=== PATIENT | male | born 1995 | race Caucasian/White ===

== ENCOUNTER 2021-11-30 20:42 | Emergency (ER) | payer MEDICAID, SELFPAY ==
--- NOTE | ~2021-11-30 | XR_ITS ---
EXAMINATION: XR CHEST CLINICAL INFORMATION: Chest pain. COMPARISON: None TECHNIQUE: Frontal view of the chest was obtained. FINDINGS: No significant abnormality is noted involving the heart, lungs, mediastinum, bony thorax or soft tissues. XR/XR chest 1V IMPRESSION: Unremarkable examination.
[2021-11-30 20:50] VITALS: BP 122/66; PULSE 56; RESP 16; TEMP 37.2; O2SAT 98
[2021-11-30 20:51] VITALS: BP 128/64; PULSE 77; O2SAT 96
--- NOTE | 2021-11-30 20:54 | ECG_ITS ---
Test Reason : CHEST PAIN Blood Pressure : / mmHG Vent. Rate : 063 BPM Atrial Rate : 063 BPM P-R Int : 182 ms QRS Dur : 108 ms QT Int : 430 ms P-R-T Axes : 041 -27 009 degrees QTc Int : 440 ms Normal sinus rhythm with sinus arrhythmia Incomplete right bundle branch block Borderline ECG When compared with ECG of 13-MAY-2015 05:37, T wave inversion now evident in Inferior leads T wave amplitude has decreased in Anterolateral leads Referred By: Generic ED Physician Electronically Signed By:SHARIF TEE
[2021-11-30 20:57] VITALS: BMI 30.4
--- NOTE | 2021-11-30 21:02 | ED_ITS ---
HPI - Chest Pain General Chief Complaint: Chest Pain Stated Complaint: cp Time Seen by Provider: 11/30/21 21:02 Source: patient Mode of arrival: ambulatory Limitations: no limitations History of Present Illness MD complaint: chest pain (vomiting when he eats, stomach acids) Onset (ago): week(s) Timing of current episode: episodic Prior episodes: Yes Onset: after eating Pain location: substernal Pain radiation: none Severity: moderate Quality: tightness and burning Relieving factors: antacids Exacerbating factors: eating Context: other (started after he left [facility] started to have issues with his stomach) Associated symptoms: nausea and vomiting Treatment prior to arrival: none Related Data Previous Rx's Medication Instructions Recorded omeprazole 20 mg capsule,delayed 20 mg PO DAILY #20 caps 11/30/21 release ondansetron 4 mg disintegrating 4 mg PO Q8H PRN nausea and 11/30/21 tablet vomiting #20 tabs Allergies Allergy/AdvReac Type Severity Reaction Status Date / Time Penicillins [PENICILLINS] Allergy Unknown RASH Verified 11/30/21 20:59 Review of Systems Review of Systems: Constitutional : No Weight loss, No Fever, No Chills ENT/Mouth : No sore throat, No Rhinorrhea Eyes: No Eye Pain, No Swelling Cardiovascular : pos Chest Pain, no SOB, no Dyspnea on Exertion, No Orthopnea, No Edema, No Palpitations Respiratory : pos Cough, No Sputum Gastrointestinal : pos Nausea, pos Vomiting, No Diarrhea, No abdominal Pain, No Hematochezia, No Melena Genitourinary : No Dysuria, No Urinary Frequency Musculoskeletal : No joint pain, No Myalgias, No Joint Swelling Skin : No Skin Lesions, No rash Neuro : No Weakness, No Numbness, No Dizziness, No Headache Psych : No Anxiety/Panic, No Depression Heme/Lymph: No Bruising, No Lymphadenopathy Endocrine : No Polyuria, No Polydipsia All other systems reviewed and are negative [facility] Past Medical History Attestation statement: The following information was validated with the patient. Medical History Asthma Social History Social History (Updated 11/30/21 @ 21:23 by Kandy Teague DO) Patient Tobacco Use Status: Current someday Tobacco user Substance Use Type: Marijuana Advance Directives: No Advance Directives Information Provided: No Physical Exam Vital Signs: Vital Signs: Last Vital Signs Temp 99.0 F 11/30/21 20:50 Pulse 56 11/30/21 20:50 Resp 16 11/30/21 20:50 BP 122/66 11/30/21 20:50 Pulse Ox 98 11/30/21 20:50 O2 Del Method 11/30/21 20:50 BMI result Body Mass Index 30.4 Appearance: Alert. Oriented X3. No acute distress. Eyes: Pupils equal, round and reactive to light. ENT: Pharynx normal. Neck: Normal inspection. Neck supple. CVS: Normal heart rate and rhythm. Pulses normal. Respiratory: No respiratory distress. Breath sounds normal. intermittent bronchospastic cough Abdomen: Soft and nontender. neg Mejia's sign Skin: Skin warm and dry. Normal skin color. Normal skin turgor. Extremities: No lower extremity edema. No calf ttp Neuro: Oriented X 3. No motor deficit. No sensory deficit. Course Course Course Narrative: feels better stable for DC MDM - Chest Pain MDM Narrative Medical decision making narrative: 26 yo male with hx of asthma here with c/o n/v and epigastric pain when he eats heavy foods he has no abdominal pain to suggest GB issues or pancreatitis, his chest pain seems more GERD related. At this time will obtain basic labs, EKG, CXR, hydrate the patient, supportive medications. Will start on antacid and refer to PCP. He also has hx of asthma that has been acting up - INH ordered for him to take home. Dispo per results and clinical improvement. Lab Data Result diagrams: 11/30/21 21:20 11/30/21 21:20 Labs: Lab Results 11/30/21 11/30/21 11/30/21 Range/Units 21:20 21:20 21:20 WBC 11.5 H (4.8-10.8) X10*3/uL RBC 5.37 (4.60-5.80) X10*6/uL Hgb 15.4 (14.0-18.0) g/dl Hct 45.5 (42.0-52.0) % MCV 84.7 (80.0-98.0) fL MCH 28.7 (27.0-33.0) pg MCHC 33.8 (31.0-36.0) g/dl RDW 13.8 (11.0-16.0) % Plt Count 205 (160-400) X10*3/uL MPV 12.6 H (9.4-12.4) fL Immature Gran % (Auto) Cancelled Neut % (Auto) Cancelled Lymph % (Auto) Cancelled Heard % (Auto) Cancelled Eos % (Auto) Cancelled Baso % (Auto) Cancelled Lymph # (Auto) Cancelled Heard # (Auto) Cancelled Eos # (Auto) Cancelled Baso # (Auto) Cancelled Abs Immat Gran (auto) Cancelled Absolute Neuts (auto) Cancelled Absolute Nucleated RBC 0.000 (0.0-0.012) X10*3/uL Nucleated RBC % (auto) 0.0 (0.0-0.2) /100WBC Neutrophils % (Manual) 92 H (45-73) % Band Neutrophils % 0 L (3-5) % Lymphocytes % (Manual) 6 L (20-40) % Monocytes % (Manual) 2 (2-11) % Abs Neuts (Manual) 10.6 H (2.0-8.3) X10*3/uL Lymphocytes # (Manual) 0.7 L (1.2-4.9) X10*3/uL Monocytes # (Manual) 0.2 (0.1-1.2) X10*3/uL Toxic Granulation PRESENT Toxic Vacuolation PRESENT Platelet Estimate NORMAL (NORMAL) Large Platelets PRESENT Plt Morphology Comment NOTED RBC Morphology NORMAL Sodium 139 (135-145) mmol/L Potassium 3.6 (3.3-5.1) mmol/L Chloride 105 (96-108) mmol/L Carbon Dioxide 23 (22-29) mmol/L Anion Gap 15 (12-20) BUN 8 L (9-16) mg/dL Creatinine 1.12 (0.5-1.4) mg/dL Estim Creat Clear Calc 110.2 Estimated GFR > 60 Random Glucose 117 H (60-115) mg/dL Calcium 10.2 (8.4-10.2) mg/dL Total Bilirubin (0.0-1.0) mg/dL Direct Bilirubin (0.0-0.5) mg/dL AST (5-37) U/L ALT (0-40) U/L Alkaline Phosphatase (39-117) U/L Troponin I High Sens < 3.5 (<3.5-35.0) ng/L Total Protein (6.5-8.0) g/dL Albumin (3.5-5.0) g/dL Lipase (8-78) U/L 11/30/21 Range/Units 21:20 WBC (4.8-10.8) X10*3/uL RBC (4.60-5.80) X10*6/uL Hgb (14.0-18.0) g/dl Hct (42.0-52.0) % MCV (80.0-98.0) fL MCH (27.0-33.0) pg MCHC (31.0-36.0) g/dl RDW (11.0-16.0) % Plt Count (160-400) X10*3/uL MPV (9.4-12.4) fL Immature Gran % (Auto) Neut % (Auto) Lymph % (Auto) Heard % (Auto) Eos % (Auto) Baso % (Auto) Lymph # (Auto) Heard # (Auto) Eos # (Auto) Baso # (Auto) Abs Immat Gran (auto) Absolute Neuts (auto) Absolute Nucleated RBC (0.0-0.012) X10*3/uL Nucleated RBC % (auto) (0.0-0.2) /100WBC Neutrophils % (Manual) (45-73) % Band Neutrophils % (3-5) % Lymphocytes % (Manual) (20-40) % Monocytes % (Manual) (2-11) % Abs Neuts (Manual) (2.0-8.3) X10*3/uL Lymphocytes # (Manual) (1.2-4.9) X10*3/uL Monocytes # (Manual) (0.1-1.2) X10*3/uL Toxic Granulation Toxic Vacuolation Platelet Estimate (NORMAL) Large Platelets Plt Morphology Comment RBC Morphology Sodium (135-145) mmol/L Potassium (3.3-5.1) mmol/L Chloride (96-108) mmol/L Carbon Dioxide (22-29) mmol/L Anion Gap (12-20) BUN (9-16) mg/dL Creatinine (0.5-1.4) mg/dL Estim Creat Clear Calc Estimated GFR Random Glucose (60-115) mg/dL Calcium (8.4-10.2) mg/dL Total Bilirubin 0.7 (0.0-1.0) mg/dL Direct Bilirubin 0.3 (0.0-0.5) mg/dL AST 15 (5-37) U/L ALT 16 (0-40) U/L Alkaline Phosphatase 57 (39-117) U/L Troponin I High Sens (<3.5-35.0) ng/L Total Protein 7.8 (6.5-8.0) g/dL Albumin 4.8 (3.5-5.0) g/dL Lipase 20 (8-78) U/L ECG Data ECG #1: Attestation: I personally reviewed and interpreted this ECG as follows: ECG interpretation date: 11/30/21 ECG interpretation time: 21:03 Interpretation: Rate: 63 Rhythm: NSR Chester: left Normal P waves. Normal ANGELICA. Normal QRS complex. ST T wave : normal no CASH qTC: normal prior studies: no acute ischemia The study has been interpreted contemporaneously by me. Discharge Plan Discharge Clinical Impression: GERD (gastroesophageal reflux disease) Qualifiers: Esophagitis presence: with esophagitis Esophagitis bleeding: without hemorrhage Qualified Code(s): K21.00 - Gastro-esophageal reflux disease with esophagitis, without bleeding Patient Disposition: Home, Self-Care Instructions: Diet for Stomach Ulcers and Gastritis (ED), Gastroesophageal Reflux Disease (ED) Additional Instructions: return to ED for any worsening symptoms or concerns avoid spicy, greasy, fatty foods alcohol will also trigger your stomach try to avoid please get established with a primary care doctor marijuana can cause vomiting Prescriptions: New ondansetron 4 mg tablet,disintegrating 4 mg PO Q8H PRN (Reason: nausea and vomiting) Qty: 20 0RF omeprazole 20 mg capsule,delayed release(DR/EC) 20 mg PO DAILY Qty: 20 0RF
[2021-11-30 21:29] LABS: Hematocrit 45.5 % (42.0-52.0); Hemoglobin 15.4 g/dl (14.0-18.0); Mean Corpuscular HGB Conc 33.8 g/dl (31.0-36.0); Mean Corpuscular Hemoglobin 28.7 pg (27.0-33.0); Mean Corpuscular Volume 84.7 fL (80.0-98.0); Mean Platelet Volume 12.6 fL (9.4-12.4); Platelet Count 205 X10*3/uL (160-400); Red Blood Count 5.37 X10*6/uL (4.60-5.80); Red Cell Distribution Width 13.8 % (11.0-16.0)
[2021-11-30 21:36] LABS: WBC ABN SCTR FOR CBC 1
[2021-11-30] MEDS: ondansetron HCL 4 MG/2 ML VIAL IVPUSH (21:40)
[2021-11-30] MEDS: Famotidine/PF 20 MG/2 ML VIAL IVPUSH (21:40)
[2021-11-30] MEDS: 0.9 % Sodium Chloride 1,000 ML 999 ML IV (21:40)
--- NOTE | 2021-11-30 21:46 | PC.NURSE ---
Pt refused updraft due to active vomiting. Pt agitated, refusing other medications until nausea medication takes effect. Provider aware. Pt also admitted to smoking marijuana daily, last use earlier today.
[2021-11-30 21:47] LABS: Anion Gap 15 (12-20); Blood Urea Nitrogen 8 mg/dL (9-16); Calcium 10.2 mg/dL (8.4-10.2); Carbon Dioxide 23 mmol/L (22-29); Chloride 105 mmol/L (96-108); Creatinine Clr Calc Pharmacy 110.2; Estimated Glomerular Filt Rate > 60; Glucose Random 117 mg/dL (60-115); Potassium 3.6 mmol/L (3.3-5.1); Sodium 139 mmol/L (135-145)
[2021-11-30 21:49] LABS: Alanine Aminotransferase 16 U/L (0-40); Albumin Level 4.8 g/dL (3.5-5.0); Alkaline Phosphatase 57 U/L (39-117); Aspartate Amino Transferase 15 U/L (5-37); Bilirubin Direct 0.3 mg/dL (0.0-0.5); Bilirubin Total 0.7 mg/dL (0.0-1.0); Lipase 20 U/L (8-78); Total Protein 7.8 g/dL (6.5-8.0)
[2021-11-30 21:55] LABS: Troponin-I High Sensitivity < 3.5 ng/L (<3.5-35.0)
[2021-11-30 22:02] LABS: Band Neutrophils Percent 0 % (3-5); Lymphocytes Percent Manual 6 % (20-40); Monocytes Percent Manual 2 % (2-11); Neutrophils Percent Manual 92 % (45-73)
[2021-11-30 22:04] LABS: Large Platelet PRESENT; Platelet Estimate NORMAL (NORMAL); Platelet Morphology Comment NOTED; RBC Morphology NORMAL
[2021-11-30 22:05] LABS: Lymphocytes Absolute Manual 0.7 X10*3/uL (1.2-4.9); Monocytes Absolute Manual 0.2 X10*3/uL (0.1-1.2); Neutrophils Absolute Manual 10.6 X10*3/uL (2.0-8.3); Toxic Granulation PRESENT; Toxic Vacuolation PRESENT; White Blood Count 11.5 X10*3/uL (4.8-10.8)
[2021-11-30] MEDS: Metoclopramide HCl 10 MG/2 ML VIAL IVPUSH (22:51)
[2021-11-30] MEDS: diphenhydrAMINE HCL 50 MG/ML VIAL 25 MG IVPUSH (22:51)
[2021-11-30 23:48] VITALS: BP 142/89; PULSE 63; RESP 16; TEMP 37.5; O2SAT 98
== END 2021-12-01 00:02 | disposition home or self-care (01) ==
PROVIDERS: Emergency Provider Emergency Medicine
DX: K21.00 Gastro-esophageal reflux disease with esophagitis, without bleeding (principal); R07.89 Other chest pain; R11.2 Nausea with vomiting, unspecified; F17.200 Nicotine dependence, unspecified, uncomplicated; Z71.6 Tobacco abuse counseling; Z79.899 Other long term (current) drug therapy
CPT/HCPCS: 36415; 71045; 80048; 80076; 83690; 84484; 85007; 85027; 93005; 96361; 96374; 96375; 99284; J1200; J2405; J2765

== ENCOUNTER 2021-12-03 06:02 | Emergency (ER) | payer MEDICAID, SELFPAY ==
[2021-12-03 06:08] VITALS: BP 142/91; PULSE 59; RESP 16; TEMP 36.9; O2SAT 100; BMI 27.1
--- NOTE | 2021-12-03 07:00 | ED.NAVMDI ---
HPI - Nausea/Vomiting/Diarrhea General Chief complaint: Nausea/Vomiting/Diarrhea Stated complaint: Nausea Vomiting, cp? Time Seen by Provider: 12/03/21 06:54 Source: patient Limitations: no limitations History of Present Illness HPI Narrative: 26-year-old male who presents emergency department for evaluation of nausea vomiting abdominal pain. Patient states this is 3rd episode with these symptoms. Patient was seen on the 11/30/2021 and diagnosed with gastritis. The patient states that he has been taking omeprazole and Zofran and was feeling fine until 04:00 hours when he began vomiting. He states that he is mainly dry heaving and he has had multiple episodes of vomiting to the point where he has lost count. He is also complaining of abdominal pain. He points to his umbilical area when asked to localize the pain. He states that it is a constant, burning, cramping like pain which is 10/10. The patient has been trying to drink sips of water but this causes him to vomit. He also states that he has constant nausea and he continues to lose his his fingers down his throat to make himself feel better and trigger vomiting. Patient states that he smokes marijuana 20 times a day and he has done this for a long period of time. MD elicited complaint: nausea, vomiting and abdominal pain Onset (ago): hour(s) (3) Description of vomiting: watery and bilious Associated nausea: Yes Associated abdominal pain: Yes Location of pain: periumbilical Pain consistency: constant (Cramping/burning sensation) Severity: severe Pain scale (0-10): 10 Quality: cramping and other (Burn) Exacerbating factors: eating Relieving factors: none Associated symptoms: nausea/vomiting and weakness Treatment prior to arrival: other (Zofran ODT) Related Data Previous Rx's Medication Instructions Recorded omeprazole 20 mg capsule,delayed 20 mg PO DAILY #20 caps 11/30/21 release ondansetron 4 mg disintegrating 4 mg PO Q8H PRN nausea and 11/30/21 tablet vomiting #20 tabs metoclopramide HCl 10 mg tablet 10 mg PO Q6H PRN nausea and 12/03/21 (Reglan) vomiting #20 tabs Allergies Allergy/AdvReac Type Severity Reaction Status Date / Time Penicillins [PENICILLINS] Allergy Unknown RASH Verified 11/30/21 20:59 Review of Systems Review of Systems: Yes all other systems are reviewed and are negative Gastrointestinal: Gastrointestinal: Reports nausea PMFSH Past Medical History Medical History Asthma Social History Social History (Updated 11/30/21 @ 21:23 by Kandy Teague DO) Patient Tobacco Use Status: Current someday Tobacco user Substance Use Type: Marijuana Advance Directives: No Advance Directives Information Provided: Yes Physical Exam Vital Signs: Vital Signs: Last Vital Signs Temp 98.5 F 12/03/21 06:08 Pulse 59 12/03/21 06:08 Resp 16 12/03/21 06:08 BP 142/91 H 12/03/21 06:08 Pulse Ox 100 12/03/21 06:08 O2 Del Method 12/03/21 06:08 BMI result Body Mass Index 27.1 Const: Other: Awake, alert, male patient, actively dry heaving, he is to use fingers down his throat to relieve his nausea, he is diaphoretic, he is able to answer all questions appropriately HEENT: Head: Yes normal to inspection, Yes normocephalic and Yes atraumatic Ears: external ears normal General nose exam: Normal external nose present Face and sinus: Yes normal facial exam Mouth: Normal oral and palatal mucosa present Throat: Yes posterior oropharynx normal Eyes: General: appearance normal, both eyes and all related structures Pupils: Equal, round and reactive pupils present Neck: Neck: Yes normal visual inspection, Yes no lymphadenopathy, Yes trachea midline and Yes supple Chest: Chest palpation & inspection: normal inspection of the chest and normal palpation of entire chest wall Resp: Effort & Inspection: normal respiratory effort and able to speak in complete sentences Auscultation: clear to auscultation bilaterally Cardio: Rate: regular rate Rhythm: regular rhythm Heart sounds: S1 normal heart sound present, S2 normal heart sound present and no murmurs GI: Inspection: Yes normal to inspection Palpation (GI): Soft to palpation, Tenderness to palpation present (GI) in the epigastrum (Moderate) and periumbilically (Moderate) and no guarding Auscultation: normal bowel sounds : General: Yes no CVA tenderness Back/Spine/Pelvis: Back: no CVA tenderness Skin: General skin exam: no rashes or lesions noted Neuro: Cranial nerves: Yes CN's II-XII intact bilaterally and Yes Equal, round and reactive pupils present Cognition (Neuro): normal cognition Motor exam (neuro): 5/5 motor strength present throughout Extrem: General: Yes normal to inspection Psych: Appearance: grossly normal Speech and movement: Normal speech and movement present Affect: normal affect Attitude: cooperative Thought process: Normal thought process present Thought content: Normal thought content present Course Course Course Narrative: 26-year-old male who presents emergency department for evaluation nausea, vomiting and abdominal pain since 04:30 hours. This is the patient's 3rd episode with these symptoms. He was seen on 11/30/2021 and diagnosed gastritis. Patient does smoke marijuana 20 times per day. On presentation the patient was actively dry heaving and sticking his fingers down his throat relieved his nausea. Physical examination did reveal epigastric and periumbilical tenderness. I did order laboratory evaluation includes CBC, CMP and lipase. The patient was ordered to get Reglan 20 mg IV, Benadryl 50 mg IV, Ativan 1 mg IV and normal saline x1 L. 0954: The patient is feeling significantly better after the above treatment. He has had no further episodes of vomiting. The [place] [address] but this is secondary to his vomiting. The rest of his labs were unremarkable. I did discuss marijuana/cannabis hyperemesis syndrome with the patient told it is important that he stop smoking marijuana for at least 6 months. He was advised to continue taking Zofran. He is also given prescription for Reglan. He was given printed and verbal instructions and discharged home. MDM - Nausea/Vomiting/Diarrhea Lab Data Result diagrams: 12/03/21 07:24 12/03/21 07:24 Labs: Lab Results 12/03/21 12/03/21 Range/Units 07:24 07:24 WBC 14.4 H (4.8-10.8) X10*3/uL RBC 5.01 (4.60-5.80) X10*6/uL Hgb 14.6 (14.0-18.0) g/dl Hct 43.3 (42.0-52.0) % MCV 86.4 (80.0-98.0) fL MCH 29.1 (27.0-33.0) pg MCHC 33.7 (31.0-36.0) g/dl RDW 14.0 (11.0-16.0) % Plt Count 169 (160-400) X10*3/uL MPV 12.8 H (9.4-12.4) fL Immature Gran % (Auto) 0.4 (0.0-0.4) % Neut % (Auto) 80.4 H (45-73) % Lymph % (Auto) 10.3 L (20-40) % Haines % (Auto) 6.3 (2-11) % Eos % (Auto) 2.2 (0-4) % Baso % (Auto) 0.4 (0-2) % Lymph # (Auto) 1.5 (1.2-4.9) X10*3/uL Haines # (Auto) 0.9 (0.1-1.2) X10*3/uL Eos # (Auto) 0.3 (0.0-0.4) X10*3/uL Baso # (Auto) 0.1 (0.0-0.2) X10*3/uL Abs Immat Gran (auto) 0.06 H (0.00-0.03) X10*3/uL Absolute Neuts (auto) 11.6 H (2.0-8.3) x10*3/uL Absolute Nucleated RBC 0.000 (0.0-0.012) X10*3/uL Nucleated RBC % (auto) 0.0 (0.0-0.2) /100WBC Sodium 139 (135-145) mmol/L Potassium 3.4 (3.3-5.1) mmol/L Chloride 106 (96-108) mmol/L Carbon Dioxide 21 L (22-29) mmol/L Anion Gap 15 (12-20) BUN 11 (9-16) mg/dL Creatinine 1.12 (0.5-1.4) mg/dL Estim Creat Clear Calc 110.6 Estimated GFR > 60 Random Glucose 113 (60-115) mg/dL Calcium 9.2 D (8.4-10.2) mg/dL Total Bilirubin 0.7 (0.0-1.0) mg/dL AST 15 (5-37) U/L ALT 17 (0-40) U/L Alkaline Phosphatase 48 (39-117) U/L Total Protein 6.7 (6.5-8.0) g/dL Albumin 4.2 (3.5-5.0) g/dL Lipase 31 (8-78) U/L Discharge Plan Discharge Clinical Impression: Cyclic vomiting syndrome, Marijuana use, continuous Patient Disposition: Home, Self-Care Instructions: Cyclic Vomiting Syndrome (ED) Additional Instructions: Your blood work was normal. You have cyclic vomiting syndrome. This is also call marijuana/cannabis hyperemesis syndrome. Smoking marijuana daily can change your brain chemistries and then this change activates the vomiting center in your brain that causes you to have repeat episodes of vomiting. The treatment is to stop smoking marijuana for at least 6 months. If you continue to smoke marijuana you will continue to get cycles of vomiting. Take Zofran ODT 4 mg pills, 1 pill dissolved in your mouth every 8 hours as needed for nausea and vomiting. Reglan (metoclopramide) in 10 mg, 1 pill with Benadryl 25 mg, 2 pills. After you take these medications, lie down in a dark quiet room and try to fall asleep. These medications will make you sleepy, do not drive or work after taking these medications. Follow-up with your doctor in 2 days. Please return to the emergency department if your symptoms get worse or if you develop any symptoms that are concerning to you. Prescriptions: New metoclopramide HCl [Reglan] 10 mg tablet 10 mg PO Q6H PRN (Reason: nausea and vomiting) Qty: 20 0RF No Action ondansetron 4 mg tablet,disintegrating 4 mg PO Q8H PRN (Reason: nausea and vomiting) Qty: 20 0RF omeprazole 20 mg capsule,delayed release(DR/EC) 20 mg PO DAILY Qty: 20 0RF
[2021-12-03 07:29] LABS: MANUAL DIFF FLAG NO
[2021-12-03] MEDS: 0.9 % Sodium Chloride 1,000 ML 999 ML IV (07:35)
[2021-12-03 07:41] LABS: Basophils Absolute Auto 0.1 X10*3/uL (0.0-0.2); Basophils Percent Auto 0.4 % (0-2); Eosinophils Absolute Auto 0.3 X10*3/uL (0.0-0.4); Eosinophils Percent Auto 2.2 % (0-4); Hematocrit 43.3 % (42.0-52.0); Hemoglobin 14.6 g/dl (14.0-18.0); Imm Gran Abs Auto 0.06 X10*3/uL (0.00-0.03); Imm Gran Pct Auto 0.4 % (0.0-0.4); Lymphocytes Absolute Auto 1.5 X10*3/uL (1.2-4.9); Lymphocytes Percent Auto 10.3 % (20-40); Mean Corpuscular HGB Conc 33.7 g/dl (31.0-36.0); Mean Corpuscular Hemoglobin 29.1 pg (27.0-33.0); Mean Corpuscular Volume 86.4 fL (80.0-98.0); Mean Platelet Volume 12.8 fL (9.4-12.4); Monocytes Absolute Auto 0.9 X10*3/uL (0.1-1.2); Monocytes Percent Auto 6.3 % (2-11); Neutrophils Absolute Auto 11.6 x10*3/uL (2.0-8.3); Neutrophils Percent Auto 80.4 % (45-73); Platelet Count 169 X10*3/uL (160-400); Red Blood Count 5.01 X10*6/uL (4.60-5.80); White Blood Count 14.4 X10*3/uL (4.8-10.8)
[2021-12-03] MEDS: LORazepam 2 MG/ML VIAL 1 MG IVPUSH (07:46)
[2021-12-03] MEDS: Metoclopramide HCl 10 MG/2 ML VIAL IVPUSH (07:47)
[2021-12-03] MEDS: diphenhydrAMINE HCL 50 MG/ML VIAL IVPUSH (07:47)
[2021-12-03 07:48] LABS: Alanine Aminotransferase 17 U/L (0-40); Albumin Level 4.2 g/dL (3.5-5.0); Alkaline Phosphatase 48 U/L (39-117); Anion Gap 15 (12-20); Aspartate Amino Transferase 15 U/L (5-37); Bilirubin Total 0.7 mg/dL (0.0-1.0); Blood Urea Nitrogen 11 mg/dL (9-16); Calcium 9.2 mg/dL (8.4-10.2); Carbon Dioxide 21 mmol/L (22-29); Chloride 106 mmol/L (96-108); Creatinine Clr Calc Pharmacy 110.6; Estimated Glomerular Filt Rate > 60; Glucose Random 113 mg/dL (60-115); Lipase 31 U/L (8-78); Potassium 3.4 mmol/L (3.3-5.1); Sodium 139 mmol/L (135-145); Total Protein 6.7 g/dL (6.5-8.0)
== END 2021-12-03 10:13 | disposition home or self-care (01) ==
PROVIDERS: Emergency Provider Emergency Medicine Emergency Medical Services
DX: R11.15 Cyclical vomiting syndrome unrelated to migraine (principal); F12.90 Cannabis use, unspecified, uncomplicated; F17.200 Nicotine dependence, unspecified, uncomplicated
CPT/HCPCS: 36415; 80053; 83690; 85025; 96361; 96374; 96375; 99283; 99284; J1200; J2060; J2765

== ENCOUNTER 2022-01-08 15:52 | Emergency (ER) | payer MEDICAID, SELFPAY ==
[2022-01-08 17:33] VITALS: BP 121/73; PULSE 63; RESP 14; TEMP 36.6; O2SAT 99; BMI 26.4
[2022-01-08 17:49] VITALS: BP 117/82; PULSE 70; RESP 16; TEMP 37.3; O2SAT 98
[2022-01-08 18:17] LABS: COVID-19 Test Negative (Negative); IDNOW Serial# 16C4AD1C
--- NOTE | 2022-01-08 18:36 | ED.HA ---
HPI - Headache General Chief Complaint: Upper Respiratory Symptoms Stated Complaint: COVID Symptoms Time Seen by Provider: 01/08/22 18:32 Source: patient Mode of arrival: ambulatory Limitations: no limitations History of Present Illness HPI Narrative: Patient presents emergency department for evaluation of headache and requesting a COVID-19 test. He states that today he was sitting in a hot car for a long time without any air conditioning and he developed a headache. At the time of this exam his headache has resolved. The not use any Tylenol or ibuprofen. Denies recent or persistent headache, dizziness, lightheadedness, neck pain, neck stiffness, vision changes, chest pain, palpitations, shortness of breath, difficulty breathing, nausea, vomiting, numbness or tingling of the extremities. Related Data Previous Rx's Medication Instructions Recorded omeprazole 20 mg capsule,delayed 20 mg PO DAILY #20 caps 11/30/21 release ondansetron 4 mg disintegrating 4 mg PO Q8H PRN nausea and 11/30/21 tablet vomiting #20 tabs metoclopramide HCl 10 mg tablet 10 mg PO Q6H PRN nausea and 12/03/21 (Reglan) vomiting #20 tabs Allergies Allergy/AdvReac Type Severity Reaction Status Date / Time Penicillins [PENICILLINS] Allergy Unknown RASH Verified 01/08/22 17:33 Review of Systems Review of Systems: Constitutional: No weight loss, fever, chills, weakness or fatigue. Skin: No rash or itching. Cardiovascular: No chest pain, chest pressure or chest discomfort. No palpitations Respiratory: No shortness of breath, cough or sputum production. Gastrointestinal: No anorexia, nausea, vomiting or diarrhea. No abdominal pain Genitourinary: No burning micturition. No urinary frequency or incontinence. Musculoskeletal: No muscle pain, back pain, joint pain or stiffness. Psychiatric: No depression or anxiety. Neurologic: Positive headache, resolved. No dizziness. No pre-syncope/ syncope. No unilateral weakness. No ataxia. No numbness. No tingling. No change in bowel or bladder control. Yes all other systems are reviewed and are negative PMFSH Past Medical History Attestation statement: The following information was validated with the patient. Source: old records reviewed Medical History Asthma Social History Social History Patient Tobacco Use Status: Current someday Tobacco user Substance Use Type: Marijuana Advance Directives: No Advance Directives Information Provided: Yes Physical Exam Vital Signs: Vital Signs: Last Vital Signs Temp 99.2 F 01/08/22 17:49 Pulse 70 01/08/22 17:49 Resp 16 01/08/22 17:49 BP 117/82 01/08/22 17:49 Pulse Ox 98 01/08/22 17:49 O2 Del Method 01/08/22 17:49 BMI result Body Mass Index 26.4 Vital signs have been reviewed as normal and appeared to be correct. Blood pressure normal.? Heart rate normal.? Respiration rate normal. Temperature normal.? Oxygen saturation normal. Appearance: Alert.?Oriented to person, place and time. No acute distress.?Normal affect. Eyes: Pupils equal, round and reactive to light.?? Neck: Normal inspection.? Neck supple.?? CVS: Heart sounds normal. Normal heart rate and rhythm.? Pulses normal.?? Respiratory: No respiratory distress.? Lung sounds clear to auscultation bilaterally?? Abdomen: Soft and non-tender. Skin: Skin warm and dry.? Normal skin color.? Extremities: No lower extremity edema.? Neuro: Moves all extremities spontaneously. Sensation intact bilaterally. No focal neuro deficits. Ambulates with normal steady gait. Course Course Course Narrative: Patient is a 26-year-old male with past medical history of asthma who presents to the emergency department for evaluation of her resolved headache and requesting COVID-19 testing. No focal neurological findings. No active headache at this time. COVID-19 testing is negative. Vital signs are stable. Patient is ambulatory with a steady gait. Requesting a return to work note. Discussed worsens and symptoms to return back to the emergency department for. Advised staying well hydrated, avoiding excessive heat. Follow up with primary care provider as needed. MDM - Headache Medical Records Attestation: I reviewed the patient's medical records. Lab Data Attestation: I reviewed the patient's lab results. Labs: Lab Results 01/08/22 Range/Units 17:51 COVID-19 (BRETT) Negative (Negative) COVID-19 Clin Com See Note Discharge Plan Discharge Clinical Impression: Headache Patient Disposition: Home, Self-Care Instructions: General Headache (ED) Additional Instructions: You COVID-19 test was negative. Avoid excessive heat, stay well hydrated drinking plenty of water. You can take ibuprofen 200 mg, 3 tablets (600mg) every 6-8 hours as needed for pain, in addition to Tylenol 500 mg, 2 tablets (1,000mg) every 4-6 hours as needed for pain, but not to exceed 3 doses daily (3,000mg).? Follow up with her primary care doctor as needed Prescriptions: No Action ondansetron 4 mg tablet,disintegrating 4 mg PO Q8H PRN (Reason: nausea and vomiting) Qty: 20 0RF omeprazole 20 mg capsule,delayed release(DR/EC) 20 mg PO DAILY Qty: 20 0RF metoclopramide HCl [Reglan] 10 mg tablet 10 mg PO Q6H PRN (Reason: nausea and vomiting) Qty: 20 0RF Stand Alone Forms: Work/School Release Interventions: ED Discharge Assessment Last Done: 01/08/22 18:58 Discharge Date/Time: 01/08/22 18:58
== END 2022-01-08 18:58 | disposition home or self-care (01) ==
PROVIDERS: Emergency Provider Emergency Medicine
DX: R51.9 Headache, unspecified (principal); Z20.822 Contact with and (suspected) exposure to COVID-19; F17.200 Nicotine dependence, unspecified, uncomplicated; F12.90 Cannabis use, unspecified, uncomplicated
CPT/HCPCS: 87635; 99283

== ENCOUNTER 2022-01-19 11:24 | Emergency (ER) | payer MEDICAID, SELFPAY ==
--- NOTE | ~2022-01-19 | XR_ITS ---
EXAMINATION: XR CHEST CLINICAL INFORMATION: Pain. COMPARISON: Chest radiograph dated from 11/30/2021. TECHNIQUE: 2 views of the chest were obtained. FINDINGS: No significant abnormality is noted involving the heart, lungs, mediastinum, bony thorax or soft tissues. XR/XR chest 2V IMPRESSION: Unremarkable examination.
[2022-01-19 11:38] VITALS: BP 148/98; BP 152/103; PULSE 56; PULSE 59; RESP 22; TEMP 37.4; O2SAT 100; O2SAT 98; BMI 25.0
--- NOTE | 2022-01-19 11:38 | ED.GENADULT ---
HPI - General Adult General Chief complaint: Nausea/Vomiting/Diarrhea Stated complaint: N V SOB Time Seen by Provider: 01/19/22 11:38 Source: patient and EMS Mode of arrival: EMS Limitations: no limitations History of Present Illness HPI narrative: Patient is a 26 year old male presenting to the emergency department today with vomiting. Patient states that he has a history of cyclic vomiting and he has been told it's because of his smoking marijuana but he does not believe that he continues to smoke. Patient states that the only thing that seems to help is hot showers. Patient denies any dizziness, lightheadedness, abdominal pain, fever, chills, blurry vision, double vision, loss of vision, chest pain, difficulty breathing, shortness of breath, back pain, night sweats, pain with urination, increased urinary frequency, increased urinary urgency, blood in his urine or stool, syncope or a near syncopal episode, recent trauma or falls, bowel incontinence, bladder incontinence, bowel retention, bladder retention, or any other complaints at this time. Onset (ago): hour(s) Severity: mild Severity scale (1-10): 3 Relieving factors: none Exacerbating factors: none Associated symptoms: nausea/vomiting Treatments prior to arrival: none Related Data Previous Rx's Medication Instructions Recorded omeprazole 20 mg capsule,delayed 20 mg PO DAILY #20 caps 11/30/21 release ondansetron 4 mg disintegrating 4 mg PO Q8H PRN nausea and 11/30/21 tablet vomiting #20 tabs metoclopramide HCl 10 mg tablet 10 mg PO Q6H PRN nausea and 12/03/21 (Reglan) vomiting #20 tabs Allergies Allergy/AdvReac Type Severity Reaction Status Date / Time Penicillins [PENICILLINS] Allergy Unknown RASH Verified 01/08/22 17:33 haloperidol [From Haldol] Allergy Seizure Verified 01/19/22 13:22 Review of Systems Constitutional: Constitutional: Reports no additional constitutional complaints, Denies chills, Denies fever(s) and Denies night sweats Eyes: Eyes: Reports no additional eye complaints, Denies blurry vision, Denies change in vision, Denies diplopia, Denies eye discharge, Denies loss of vision and Denies eye pain ENT: Denies dizziness Cardiovascular: Cardiovascular: Reports no additional cardiovascular complaints, Denies chest pain, Denies lightheadedness, Denies Loss of Consciousness and Denies dyspnea Respiratory: Respiratory: Reports no additional respiratory complaints and Denies dyspnea Gastrointestinal: Gastrointestinal: Reports no additional gastrointestinal complaints, Denies abdominal pain, Denies melena, Denies hematochezia, Denies change in bowel habits, Denies change in stool character, Reports nausea and Reports vomiting Genitourinary: Genitourinary: Reports no additional male genitourinary complaints, Denies hematuria, Denies oliguria, Denies difficulty urinating, Denies dysuria, Denies urinary frequency, Denies urinary hesitancy, Denies urinary incontinence and Denies urinary urgency Musculoskeletal: Musculoskeletal: Reports no additional musculoskeletal complaints, Denies numbness and Denies tingling Neurologic: Denies dizziness, Denies loss of vision, Denies numbness and Denies tingling Psychiatric: Psychiatric: Reports no additional psychiatric complaints Endocrine: Endocrine: Reports no additional endocrine complaints Hematologic/Lymphatic: Hematologic/Lymphatic: Reports no additional hematologic/lymphatic complaints Allergic/Immunologic: Allergic/Immunologic: Reports no additional allergic/immunologic complaints PMFSH Past Medical History Attestation statement: The following information was validated with the patient. Source: old records reviewed Medical History Asthma Social History Social History Alcohol intake: never Patient Tobacco Use Status: Never used Tobacco Substance Use Type: Marijuana Substance Use Frequency: Daily Advance Directives: No Advance Directives Information Provided: No Physical Exam ED Vital Signs: Vital Signs - 24 hr 01/19/22 11:38 01/19/22 12:24 01/19/22 16:00 Temperature 99.3 F 97.8 F Pulse Rate 59 54 54 Respiratory Rate 22 H 12 16 Blood Pressure 152/103 H 137/88 133/97 H Pulse Oximetry 100 98 97 Oxygen Delivery Method Room Air Room Air Room Air BMI result Body Mass Index 25.0 Const General: cooperative, no acute distress, alert and awake Nutritional Appearance: well nourished Orientation/consciousness: patient oriented x3 Limitations: no limitations HENMT Head: Yes normal to inspection and Yes atraumatic Ears: hearing grossly normal bilaterally and external ears normal General nose exam: Normal external nose present, no nasal discharge noted and no epistaxis Face and sinus: Yes normal facial exam, No abrasion and No laceration Mouth: Normal oral and palatal mucosa present, no drooling and no muffled voice Eyes General: appearance normal, both eyes and all related structures Periorbital: periorbital findings normal Eyelids: Yes eyelids normal Conjunctivae: conjunctivae normal Pupils: Equal, round and reactive pupils present EOM: EOMs intact bilaterally Neck Neck: Yes normal visual inspection, Yes full ROM and Yes no lymphadenopathy Chest Chest palpation & inspection: normal inspection of the chest Resp Effort & Inspection: normal respiratory effort and able to speak in complete sentences Auscultation: clear to auscultation bilaterally Cardio Rate: regular rate Rhythm: regular rhythm GI Inspection: Yes normal to inspection Palpation (GI): Soft to palpation, not firm, nontender, no guarding and not rigid Neuro General: patient oriented x3 and moves all extremities Cranial nerves: Yes Equal, round and reactive pupils present Cognition (Neuro): normal cognition Motor exam (neuro): 5/5 motor strength present throughout Sensory Exam: Normal double simultaneous stimulation for sensation Coordination: [id number] test normal Extrem General: Yes normal to inspection, Yes full ROM and Yes capillary refill normal Psych Appearance: grossly normal Mental Status: mental status grossly normal Affect: normal affect Attitude: cooperative Thought process: Normal thought process present Thought content: Normal thought content present Insight: Good insight present (Psych) Medical Decision Making [place] Narrative Medical decision making narrative: Patient is a 26 year old male presenting to the emergency department today with cyclic vomiting. Patient's physical exam was unremarkable. Patient's CBC showed an elevated WBC count at 14.6 but that is consistent with his previous visits for cyclic vomiting. Patient's urine showed no acute process. Patient's EKG was unremarkable. Patient's chest x-ray showed no acute process. Patient's CMP hemolyzed and the patient refused to have it re-drawn. I explained my physical exam findings as well as all test results to the patient. I answered all questions asked by the patient. Patient received IV fluids, IV Zofran, and IV reglan which he stated helped his symptoms significantly. I stressed the importance of the patient taking his medication as prescribed. I stressed the importance of the patient following up with his primary care provider and a GI specialist. I stressed the importance of the patient returning to the emergency department immediately if his symptoms were to worsen or if he were to develop any dizziness, shortness of breath, difficulty breathing, chest pain, blurry vision, loss of vision, nausea, vomiting, abdominal pain, fever, chills, back pain, or any other complaints. Patient verbalized agreement and understanding with this treatment plan and discharge. Differential Diagnosis Differential Diagnosis: cyclic vomiting Medical Records Medical records reviewed: Yes I reviewed the patient's medical records. Lab Data Lab results reviewed: Yes I reviewed the patient's lab results. Result diagrams: 01/19/22 13:20 01/19/22 13:20 Labs: Lab Results 01/19/22 01/19/22 01/19/22 Range/Units 12:54 12:55 13:20 WBC 14.6 H (4.8-10.8) X10*3/uL RBC 5.10 (4.60-5.80) X10*6/uL Hgb 14.9 (14.0-18.0) g/dl Hct 44.4 (42.0-52.0) % MCV 87.1 (80.0-98.0) fL MCH 29.2 (27.0-33.0) pg MCHC 33.6 (31.0-36.0) g/dl RDW 14.0 (11.0-16.0) % Plt Count 153 L (160-400) X10*3/uL MPV 13.0 H (9.4-12.4) fL Immature Gran % (Auto) 0.3 (0.0-0.4) % Neut % (Auto) 87.5 H (45-73) % Lymph % (Auto) 7.3 L (20-40) % [place] % (Auto) 4.0 (2-11) % Eos % (Auto) 0.5 (0-4) % Baso % (Auto) 0.4 (0-2) % Lymph # (Auto) 1.1 L (1.2-4.9) X10*3/uL [place] # (Auto) 0.6 (0.1-1.2) X10*3/uL Eos # (Auto) 0.1 (0.0-0.4) X10*3/uL Baso # (Auto) 0.1 (0.0-0.2) X10*3/uL Abs Immat Gran (auto) 0.05 H (0.00-0.03) X10*3/uL Absolute Neuts (auto) 12.7 H (2.0-8.3) x10*3/uL Absolute Nucleated RBC 0.000 (0.0-0.012) X10*3/uL Nucleated RBC % (auto) 0.0 (0.0-0.2) /100WBC Smear Tech's Comments VERIFIED Sodium Potassium Chloride Carbon Dioxide Anion Gap BUN Creatinine Estim Creat Clear Calc Estimated GFR Random Glucose Calcium Magnesium Total Bilirubin AST ALT Alkaline Phosphatase Total Protein Albumin Urine Color Yellow Urine Appearance Clear Urine pH 6.0 (5.0-8.0) Ur Specific [place] 1.015 (1.005-1.025) Urine Protein Negative (Neg-Trace) mg/dL Urine Glucose (UA) Negative (Negative) mg/dL Urine Ketones 80 (Negative) mg/dL Urine Blood Negative (Negative) Urine Nitrite Negative (Negative) Ur Leukocyte Esterase Negative (Negative) COVID-19 (BRETT) Negative (Negative) COVID-19 Clin Com See Note 01/19/22 Range/Units 13:20 WBC (4.8-10.8) X10*3/uL RBC (4.60-5.80) X10*6/uL Hgb (14.0-18.0) g/dl Hct (42.0-52.0) % MCV (80.0-98.0) fL MCH (27.0-33.0) pg MCHC (31.0-36.0) g/dl RDW (11.0-16.0) % Plt Count (160-400) X10*3/uL MPV (9.4-12.4) fL Immature Gran % (Auto) (0.0-0.4) % Neut % (Auto) (45-73) % Lymph % (Auto) (20-40) % [place] % (Auto) (2-11) % Eos % (Auto) (0-4) % Baso % (Auto) (0-2) % Lymph # (Auto) (1.2-4.9) X10*3/uL [place] # (Auto) (0.1-1.2) X10*3/uL Eos # (Auto) (0.0-0.4) X10*3/uL Baso # (Auto) (0.0-0.2) X10*3/uL Abs Immat Gran (auto) (0.00-0.03) X10*3/uL Absolute Neuts (auto) (2.0-8.3) x10*3/uL Absolute Nucleated RBC (0.0-0.012) X10*3/uL Nucleated RBC % (auto) (0.0-0.2) /100WBC Smear Tech's Comments Sodium Cancelled Potassium Cancelled Chloride Cancelled Carbon Dioxide Cancelled Anion Gap Cancelled BUN Cancelled Creatinine Cancelled Estim Creat Clear Calc Cancelled Estimated GFR Cancelled Random Glucose Cancelled Calcium Cancelled Magnesium Cancelled Total Bilirubin Cancelled AST Cancelled ALT Cancelled Alkaline Phosphatase Cancelled Total Protein Cancelled Albumin Cancelled Urine Color Urine Appearance Urine pH (5.0-8.0) Ur Specific [place] (1.005-1.025) Urine Protein (Neg-Trace) mg/dL Urine Glucose (UA) (Negative) mg/dL Urine Ketones (Negative) mg/dL Urine Blood (Negative) Urine Nitrite (Negative) Ur Leukocyte Esterase (Negative) COVID-19 (BRETT) (Negative) COVID-19 Clin Com Imaging Data Chest x-ray: Attestation: I personally reviewed and interpreted this imaging study as follows: My impression: No acute process. Radiologist's impression: EXAMINATION: XR CHEST CLINICAL INFORMATION: Pain. COMPARISON: Chest radiograph dated from 11/30/2021. TECHNIQUE: 2 views of the chest were obtained. FINDINGS: No significant abnormality is noted involving the heart, lungs, mediastinum, bony thorax or soft tissues. XR/XR chest 2V IMPRESSION: Unremarkable examination. Dictated By: Sarai Diehl Signed By: Electronically signed by Sarai?Fazal 01/19/22 3665 ECG Data Attestation: I personally reviewed and interpreted this ECG as follows: Prior ECG tracings: available for review Interpretation: Vent. Rate: 044 BPM ? ? Atrial Rate: 044 BPM P-R Int: 196 ms? QRS Dur: 118 ms QT Int: 482 ms ? ? ? P-R-T Axes: 054 -07 023 degrees QTc Int: 412 ms ? Marked sinus bradycardia Non-specific intra-ventricular conduction delay Abnormal ECG When compared with ECG of 30-NOV-2021 20:51, Non-specific intra-ventricular conduction delay has replaced Incomplete right bundle branch block DD/ [id number] Discharge Plan Discharge Clinical Impression: Cyclical vomiting Patient Disposition: Home, Self-Care Instructions: Cyclic Vomiting Syndrome (ED) Additional Instructions: Follow up with your primary care provider and a GI specialist. Return to the emergency department immediately if your symptoms worsen or if you develop any dizziness, shortness of breath, difficulty breathing, chest pain, blurry vision, loss of vision, nausea, vomiting, abdominal pain, fever, chills, back pain, or any other complaints. Prescriptions: No Action ondansetron 4 mg tablet,disintegrating 4 mg PO Q8H PRN (Reason: nausea and vomiting) Qty: 20 0RF omeprazole 20 mg capsule,delayed release(DR/EC) 20 mg PO DAILY Qty: 20 0RF metoclopramide HCl [Reglan] 10 mg tablet 10 mg PO Q6H PRN (Reason: nausea and vomiting) Qty: 20 0RF Referrals: [facility] [place] G[facility]ology Services [Provider Group] (Call to establish and follow up with a GI specialist.) [facility] [facility] [place]] (Call to establish and follow up with a primary care provider. If you already have a primary care provider, please follow up with them. ) [facility] [place] [facility] Group] (Call to establish and follow up with a primary care provider. If you already have a primary care provider, please follow up with them. ) [facility] Group] (Call to establish and follow up with a primary care provider. If you already have a primary care provider, please follow up with them. ) Interventions: ED Discharge Assessment Last Done: 01/19/22 16:24 Discharge Date/Time: 01/19/22 16:28 Print Language: Chinese
--- NOTE | 2022-01-19 11:40 | ECG_ITS ---
Test Reason : NAUSEA / VOMITTING Blood Pressure : / mmHG Vent. Rate : 044 BPM Atrial Rate : 044 BPM P-R Int : 196 ms QRS Dur : 118 ms QT Int : 482 ms P-R-T Axes : 054 -07 023 degrees QTc Int : 412 ms Marked sinus bradycardia Non-specific intra-ventricular conduction delay Abnormal ECG When compared with ECG of 30-NOV-2021 20:51, Non-specific intra-ventricular conduction delay has replaced Incomplete right bundle branch block Heart rate has decreased Referred By: Veda Hanley Electronically Signed By:ROSI VACA
[2022-01-19] MEDS: 0.9 % Sodium Chloride 1,000 ML 999 ML IV (12:13)
[2022-01-19] MEDS: ondansetron HCL 4 MG/2 ML VIAL IVPUSH (12:13)
[2022-01-19 12:24] VITALS: BP 137/88; PULSE 54; RESP 12; O2SAT 98
[2022-01-19 13:09] LABS: Appearance Urine Clear; Color Urine Yellow; Glucose Urine UA Negative (Negative); Leukocyte Esterase Urine Negative (Negative); Nitrite Urine Negative (Negative); Specific Gravity - Urine 1.015 (1.005-1.025); Urine Blood Negative (Negative); Urine Ketones 80 mg/dL (Negative); Urine Protein Negative (Neg-Trace)
[2022-01-19 13:16] LABS: COVID-19 Test Negative (Negative)
[2022-01-19 13:30] LABS: Basophils Absolute Auto 0.1 X10*3/uL (0.0-0.2); Basophils Percent Auto 0.4 % (0-2); Eosinophils Absolute Auto 0.1 X10*3/uL (0.0-0.4); Eosinophils Percent Auto 0.5 % (0-4); Hematocrit 44.4 % (42.0-52.0); Hemoglobin 14.9 g/dl (14.0-18.0); Imm Gran Abs Auto 0.05 X10*3/uL (0.00-0.03); Imm Gran Pct Auto 0.3 % (0.0-0.4); Lymphocytes Absolute Auto 1.1 X10*3/uL (1.2-4.9); Lymphocytes Percent Auto 7.3 % (20-40); MANUAL DIFF FLAG SCAN; Mean Corpuscular HGB Conc 33.6 g/dl (31.0-36.0); Mean Corpuscular Hemoglobin 29.2 pg (27.0-33.0); Mean Corpuscular Volume 87.1 fL (80.0-98.0); Monocytes Absolute Auto 0.6 X10*3/uL (0.1-1.2); Neutrophils Absolute Auto 12.7 x10*3/uL (2.0-8.3); Neutrophils Percent Auto 87.5 % (45-73); PLT CLUMP 1; SCAN SMEAR FLAG 1
[2022-01-19] MEDS: Metoclopramide HCl 10 MG/2 ML VIAL IVPUSH (13:30)
[2022-01-19 13:44] LABS: Platelet Count 153 X10*3/uL (160-400); SLIDE REVIEW VERIFIED; White Blood Count 14.6 X10*3/uL (4.8-10.8)
--- NOTE | 2022-01-19 14:02 | PC.NURSE ---
patient a/o x4 . pearrla . lungs clear . heart rate regular at 68 beats per minute . skin moist , paler then then ethnicity . abdomen soft non tender . positive bowel sounds all quadrants . patient reports vomiting for 24 hours . Iv placed in right AC . labs sent . medication administered as ordered .
[2022-01-19] MEDS: Capsaicin 0.025% Cream 60 GM TUBE 1 APPL TOPICAL (14:11)
[2022-01-19] MEDS: diphenhydrAMINE HCL 50 MG/ML VIAL IVPUSH (14:13)
[2022-01-19 16:00] VITALS: BP 133/97; PULSE 54; RESP 16; TEMP 36.6; O2SAT 97
--- NOTE | 2022-01-19 16:03 | PC.NURSE ---
PATIENT REFUSED TO LAB DRAW STATED HE WANTS TO GO HOME ,KISHORE BROOKS AND PROVIDER AUGUSTA CAMPOVERDE .
== END 2022-01-19 16:28 | disposition home or self-care (01) ==
PROVIDERS: Physician Assistant Medical; Emergency Provider Emergency Medicine
DX: R11.15 Cyclical vomiting syndrome unrelated to migraine (principal); Z20.822 Contact with and (suspected) exposure to COVID-19; F12.90 Cannabis use, unspecified, uncomplicated
CPT/HCPCS: 71046; 81003; 85025; 87635; 93005; 96360; 96361; 96374; 96375; 99284; 99285; J1200; J2405; J2765

== ENCOUNTER 2022-01-28 17:47 | Emergency (ER) | payer MEDICAID, SELFPAY ==
[2022-01-28 19:44] VITALS: BP 121/70; PULSE 84; RESP 18; TEMP 36.7; O2SAT 98; BMI 25.9
== END 2022-01-29 00:44 | disposition left against medical advice (07) ==
PROVIDERS: Emergency Provider Emergency Medicine
DX: G43.909 Migraine, unspecified, not intractable, without status migrainosus (principal)
CPT/HCPCS: 99281

== ENCOUNTER 2022-02-06 17:48 | Emergency (ER) | payer MEDICAID, SELFPAY ==
[2022-02-06 18:00] VITALS: BP 108/72; PULSE 82; RESP 18; TEMP 36.9; O2SAT 97; BMI 27.1
== END 2022-02-06 21:37 | disposition left against medical advice (07) ==
LOC: HO.ED 21:26
PROVIDERS: Emergency Provider Emergency Medicine
DX: R11.10 Vomiting, unspecified (principal); R51.9 Headache, unspecified; R53.1 Weakness; R42 Dizziness and giddiness; F12.90 Cannabis use, unspecified, uncomplicated
CPT/HCPCS: 99281; 99282

== ENCOUNTER 2022-06-26 13:09 | Emergency (ER) | payer MEDICAID, SELFPAY ==
[2022-06-26 13:19] VITALS: BP 157/83; PULSE 54; O2SAT 100
[2022-06-26 13:38] VITALS: BP 135/92; PULSE 55; RESP 12; O2SAT 98; BMI 25.2
--- NOTE | 2022-06-26 13:53 | ED.NAVMDI ---
HPI - Nausea/Vomiting/Diarrhea General Chief complaint: Nausea/Vomiting/Diarrhea Stated complaint: abd pain w/nausea, vomiting since last night Time Seen by Provider: 06/26/22 13:13 Source: patient and old records reviewed Limitations: no limitations History of Present Illness HPI Narrative: Patient with a history of cyclical vomiting presents today with vomiting and epigastric pain which started at 05:00. He states he did have some diarrhea earlier but none recently. No fevers but some chills. He states he has been under stress and not sleeping lately. He has also been eating some fast food. He states he is a daily cannabis user but does not believe that is contributing to his symptoms. No alcohol or other drugs. No significant changes from prior episodes. He states he typically comes and gets IV fluids and IV nausea medicine and feels better. Related Data Previous Rx's Medication Instructions Recorded omeprazole 20 mg capsule,delayed 20 mg PO DAILY #20 caps 11/30/21 release ondansetron 4 mg disintegrating 4 mg PO Q8H PRN nausea and 11/30/21 tablet vomiting #20 tabs metoclopramide HCl 10 mg tablet 10 mg PO Q6H PRN nausea and 12/03/21 (Reglan) vomiting #20 tabs ondansetron 4 mg disintegrating 4 mg PO Q6H PRN nausea and 06/26/22 tablet vomiting #20 tabs Allergies Allergy/AdvReac Type Severity Reaction Status Date / Time Penicillins [PENICILLINS] Allergy Unknown RASH Verified 01/08/22 17:33 haloperidol [From Haldol] Allergy Seizure Verified 01/19/22 13:22 Review of Systems Constitutional: Comments: Chills but no fevers Cardiovascular: Comments: No chest pain Respiratory: Comments: No difficulty breathing or recent cough or COVID Gastrointestinal: Comments: Vomiting and epigastric pain. Some diarrhea earlier. No blood or melena Musculoskeletal: Comments: No musculoskeletal complaints Integumentary/Breasts: Comments: No rash Neurologic: Comments: No weakness Psychiatric: Comments: Recent increased stress but no suicidal or homicidal ideation [facility] Past Medical History Medical History Asthma Social History Social History Alcohol intake: never Patient Tobacco Use Status: Never used Tobacco Substance Use Type: Marijuana Advance Directives: No Physical Exam Vital Signs: Vital Signs: Last Vital Signs Pulse 55 06/26/22 13:38 Resp 12 06/26/22 13:38 BP 135/92 H 06/26/22 13:38 Pulse Ox 98 06/26/22 13:38 O2 Del Method 06/26/22 13:38 BMI result Body Mass Index 25.2 Const: Other: Awake alert. Actively vomiting initially Resp: Other: Clear and equal bilaterally Cardio: Other: Regular rate and rhythm without murmurs rubs or gallops GI: Other: Soft and nondistended. Mild epigastric tenderness without guarding or rebound. No lower abdominal tenderness Skin: Other: Warm and dry. No rash Neuro: Other: Nonfocal neuro exam Psych: Other: Appears anxious Course Course Course Narrative: 14:22. Patient has not been treated yet but is stating he would like to go home. He does not want await for IV fluids or IV medications. Although he is stable and capable of making these decisions. He does not appear at imminent risk of decompensation Medical Decision Making Medical Decision Making MDM Narrative: Patient with known history of cyclical vomiting. Reports extra stress as likely trigger to today's events. Also increased fat food intake has no other possible trigger. Will rule out pancreatitis and hepatitis. Will treat with IV fluids and IV antiemetics and reassess. Discharge Plan Discharge Clinical Impression: Cyclical vomiting Patient Disposition: Left Against Medical Advice Instructions: Acute Nausea and Vomiting (ED) Additional Instructions: Return if you change your mind Prescriptions: New ondansetron 4 mg tablet,disintegrating 4 mg PO Q6H PRN (Reason: nausea and vomiting) Qty: 20 0RF No Action ondansetron 4 mg tablet,disintegrating 4 mg PO Q8H PRN (Reason: nausea and vomiting) Qty: 20 0RF omeprazole 20 mg capsule,delayed release(DR/EC) 20 mg PO DAILY Qty: 20 0RF metoclopramide HCl [Reglan] 10 mg tablet 10 mg PO Q6H PRN (Reason: nausea and vomiting) Qty: 20 0RF
== END 2022-06-26 14:36 | disposition left against medical advice (07) ==
PROVIDERS: Emergency Provider Emergency Medicine
DX: R11.15 Cyclical vomiting syndrome unrelated to migraine (principal); F12.90 Cannabis use, unspecified, uncomplicated
CPT/HCPCS: 99282; 99283

== ENCOUNTER → 2022-10-25 11:27 | Outpatient (BNVA) | payer MEDICAID, SELFPAY | PROVIDERS: Visit Provider Nurse Practitioner Psychiatric/Mental Health | DX: F11.20 Opioid dependence, uncomplicated (principal) | CPT/HCPCS: 80305; 99202 ==

== ENCOUNTER → 2022-11-01 11:01 | Outpatient (BNVA) | payer MEDICAID, SELFPAY | PROVIDERS: Visit Provider Nurse Practitioner Psychiatric/Mental Health | DX: Z51.81 Encounter for therapeutic drug level monitoring (principal); F11.20 Opioid dependence, uncomplicated | CPT/HCPCS: 80305; 99212 ==